=== PATIENT | female | born 1945 | race Native Hawaiian/Other Pacific Islander ===

== ENCOUNTER 2022-12-27 15:23 | Outpatient (CLI) | payer OTHER | END 2022-12-27 19:54 | disposition home or self-care (01) | LOC: RAD 15:23 | PROVIDERS: ATTEND Physician Assistant | DX: M25.561 Pain in right knee (principal); M25.562 Pain in left knee ==

== ENCOUNTER 2023-02-19 13:16 | Outpatient (CLI) | payer OTHER | END 2023-02-19 19:15 | disposition home or self-care (01) | LOC: RAD 13:16 | PROVIDERS: ATTEND Physician Assistant | DX: M25.551 Pain in right hip (principal); M51.36 Other intervertebral disc degeneration, lumbar region ==